=== PATIENT | male | born 1965 | race Caucasian/White ===

== ENCOUNTER 2016-10-22 23:23 | Inpatient (IN) | payer SELFPAY ==
[2016-10-22 23:48] LABS: ABSOLUTE MONOCYTES (AUTO) 1.5 10^3/uL (0.1-1.4); BASOPHILS % (AUTO) 0.3 % (0-2); EOSINOPHILS % (AUTO) 0.1 % (0-6); HEMATOCRIT 47.3 % (37.9-51.0); HEMOGLOBIN 15.6 g/dL (13.5-17.0); HGB HCT DIFFERENCE -0.5; LYMPHOCYTES % (AUTO) 17.5 % (13-45); MEAN CORPUSCULAR HEMOGLOBIN 29.1 pg (27.0-33.4); MEAN CORPUSCULAR HGB CONC 32.9 g/dL (32.0-36.0); MEAN CORPUSCULAR VOLUME 89 fl (80-97); MONOCYTES % (AUTO) 12.7 % (3-13); RED BLOOD COUNT 5.34 10^6/uL (4.35-5.55); RED CELL DISTRIBUTION WIDTH 15.5 % (11.5-14.0); SEGMENTED NEUTROPHILS % (AUTO) 69.4 % (42-78); WHITE BLOOD COUNT 11.5 10^3/uL (4.0-10.5)
[2016-10-22] MEDS ORDERED: NORMAL SALINE 1000 ML 1,000 ML IV ONE (23:58)
[2016-10-23 00:10] LABS: ALANINE AMINOTRANSFERASE 60 U/L (21-72); ALBUMIN 4.6 g/dL (3.5-5.0); ALKALINE PHOSPHATASE 80 U/L (38-126); ANION GAP 16 (5-19); ASPARTATE AMINO TRANSFERASE 106 U/L (17-59); BILIRUBIN,DIRECT 0.4 mg/dL (0.0-0.4); BILIRUBIN,TOTAL 0.7 mg/dL (0.2-1.3); BLOOD UREA NITROGEN 18 mg/dL (7-20); CALCIUM 9.5 mg/dL (8.4-10.2); CARBON DIOXIDE 27 mmol/L (22-30); CHLORIDE 98 mmol/L (98-107); CREATININE RESULT 0.91 mg/dL (0.52-1.25); GLUCOSE 148 mg/dL (75-110); SODIUM 141.3 mmol/L (137-145); TOTAL PROTEIN 7.9 g/dL (6.3-8.2)
[2016-10-23 00:13] LABS: ALCOHOL < 10 mg/dL (NONE DETECTED)
[2016-10-23 01:31] LABS: VENOUS BLOOD BASE EXCESS 5.5 mmol/L; VENOUS BLOOD PH 7.46 (7.30-7.42)
[2016-10-23] MEDS ORDERED: NORMAL SALINE 1000 ML 1,000 ML IV ONE ×3 (01:34→07:02)
[2016-10-23] MEDS ORDERED: LORAZEPAM INJ 2 MG/1 ML VIAL IV ONE ×3 (01:50→02:50)
[2016-10-23] MEDS ORDERED: FOMEPIZOLE INJ 1.5 GM/1.5 ML VIAL IV PRN (02:00)
--- NOTE | 2016-10-23 02:11 | ER Document Report ---
ED General - General Chief Complaint: ETOH Abuse Stated Complaint: DRIKING RUBBING ALCOHOL Time Seen by Provider: 10/22/16 23:58 TRAVEL OUTSIDE OF THE [place] IN LAST 30 DAYS: No - HPI Patient complains to provider of: Isopropyl alcohol ingestion Notes: Patient coming in for evaluation of isopropyl alcohol ingestion. Patient has a history of chronic alcoholism. Patient does admit also using cocaine and heroin recently. According to the patient was found with empty bottles of isopropyl alcohol. Patient also admits to drinking regular alcohol. Patient initially denies an intent to harm himself however states that patient made a statement that he could not live without her states that she was planning on leaving her . Patient has been in the past for DTs and alcohol withdrawal for rhabdomyolysis. Upon evaluation patient is alert tachycardic. Patient has no complaints - Related Data Allergies/Adverse Reactions: Penicillins Allergy (Severe, Verified 10/23/16 04:10) Anaphylaxis Past Medical History - Social History Smoking Status: Never Smoker Frequency of alcohol use: Heavy Drug Abuse: Cocaine, Heroin, Prescription drugs Family History: CAD Patient has suicidal ideation: No Patient has homicidal ideation: No - Past Medical History Cardiac Medical History: Denies: Hx Atrial Fibrillation, Hx Congestive Heart Failure, Hx Coronary Artery Disease, Hx Heart Attack, Hx Hypercholesterolemia, Hx Hypertension, Hx Peripheral Vascular Disease, Hx Pulmonary Embolism, Hx Heart Murmur Pulmonary Medical History: Denies: Hx Asthma, Hx Bronchitis, Hx COPD, Hx Pneumonia, Hx Respiratory Failure, Hx Sleep Apnea, Hx Tuberculosis Neurological Medical History: Denies: Hx Cerebrovascular Accident, Hx Seizures Renal/ Medical History: Denies: Hx Benign Prostatic Hyperplasia, Hx End Stage Renal Disease, Hx Kidney Stones, Hx Peritoneal Dialysis Malignancy Medical History: Denies Hx Lung Cancer GI Medical History: Denies: Hx Crohn's Disease, Hx Gastroesophageal Reflux Disease, Hx Hiatal Hernia, Hx Irritable Bowel, Hx Liver Failure, Hx Ulcer Musculoskeltal Medical History: Denies Hx Arthritis, Denies Hx Fibromyalgia, Denies Hx Multiple Sclerosis, Denies Hx Muscular Dystrophy Psychiatric Medical History: Denies: Hx Dementia Traumatic Medical History: Reports: Hx Fractures Past Surgical History: Reports: Hx Orthopedic Surgery - NECK, BACK. Denies: Hx Colostomy, Hx Pacemaker - Immunizations Hx Diphtheria, Pertussis, Tetanus Vaccination: Yes Review of Systems - Review of Systems Constitutional: No symptoms reported EENT: No symptoms reported Cardiovascular: No symptoms reported Respiratory: No symptoms reported Gastrointestinal: No symptoms reported Genitourinary: No symptoms reported Male Genitourinary: No symptoms reported Musculoskeletal: No symptoms reported Skin: No symptoms reported Hematologic/Lymphatic: No symptoms reported Neurological/Psychological: Other - Isopropyl alcohol use possible attempt to harm self Physical Exam - Vital signs Vitals: Temp Pulse Resp BP Pulse Ox 97.8 F 118 H 18 153/87 H 93 10/22/16 23:26 10/22/16 23:26 10/22/16 23:26 10/22/16 23:26 10/22/16 23:26 Interpretation: Tachycardic - General General appearance: Appears well, Alert - HEENT Head: Normocephalic, Atraumatic Eyes: Normal Pupils: No: PERRL - 2 mm minimally reactive bilaterally - Respiratory Respiratory status: No respiratory distress Chest status: Nontender Breath sounds: Normal Chest palpation: Normal - Cardiovascular Rhythm: Tachycardia Heart sounds: Normal auscultation Murmur: No - Abdominal Inspection: Normal Distension: No distension Bowel sounds: Normal Tenderness: Nontender Organomegaly: No organomegaly - Back Back: Normal, Nontender - Extremities General upper extremity: Normal inspection, Nontender, Normal color, Normal ROM , Normal temperature General lower extremity: Normal inspection, Nontender, Normal color, Normal ROM , Normal temperature, Normal weight bearing. No: Aidee's sign - Neurological Neuro grossly intact: Yes Cognition: Normal Orientation: AAOx4 Bradford Coma Scale Eye Opening: Spontaneous Bradford Coma Scale Verbal: Oriented Shital Coma Scale Motor: Obeys Commands Shital Coma Scale Total: 15 Speech: Normal Motor strength normal: LUE, RUE, LLE, RLE Sensory: Normal - Psychological Associated symptoms: Normal affect, Normal mood - Skin Skin Temperature: Warm Skin Moisture: Dry Skin Color: Normal Course - Re-evaluation Re-evalutation: 10/23/16 02:10 Discuss case with poison control. Poison control ([place]) recommendations at this time as it family members and patient states that the patient drank isopropyl alcohol or rubbing alcohol did not recommend for fomepizole at this time. Patient since arriving here to the ER has become gradually tachycardic concern of possible withdrawal patient will be started on Ativan. 10/23/16 03:14 Patient came to the ER with a heart rate around 118 120. Patient's heart rate now has increased to 160 patient is diaphoretic and tremulous. Patient will be given another dose of Ativan due to poor IV access patient has received minimal IV fluids. IV was placed under ultrasound guidance. 10/23/16 03:57 10/23/16 04:11 Patient's tox screen has returned showing positive for opiates. Patient's heart rate has improved after 6 mg of Ativan IV fluids are still infusing 10/23/16 05:30 Waiting for admission 10/23/16 05:31 Otherwise stable at this time heart rate has improved to 120s-110s due to the stating that she thinks the patient was trying to harm himself patient was placed on IVC paperwork 10/23/16 05:31 - Vital Signs Vital signs: Temp Pulse Resp BP Pulse Ox 97.8 F 118 H 16 132/97 H 99 10/22/16 23:26 10/22/16 23:26 10/23/16 06:01 10/23/16 06:01 10/23/16 06:01 - Laboratory Result Diagrams: 10/22/16 23:30 10/22/16 23:30 Laboratory results interpreted by me: 10/22/16 10/22/16 10/22/16 23:30 23:30 23:30 WBC 11.5 H RDW 15.5 H Absolute Monocytes 1.5 H VBG pH Glucose 148 H Serum Osmolality 342 H AST 106 H Creatine Kinase Salicylates < 1.0 L Acetaminophen < 10 L 10/22/16 10/23/16 23:30 01:13 WBC RDW Absolute Monocytes VBG pH 7.46 H Glucose Serum Osmolality AST Creatine Kinase 1405 H Salicylates Acetaminophen Critical Care Note - Critical Care Note Total time excluding time spent on procedures (mins): 90 Comments: Multiple evaluation the patient with isopropyl alcohol ingestion with possible alcohol withdrawals. Requiring ICU admission Discharge - Discharge Clinical Impression: Isopropyl alcohol ingestion, Self-harming behavior, Cocaine abuse Alcohol withdrawal Qualifiers: Complication of substance-induced condition: with unspecified complication Qualified Code(s): F10.239 - Alcohol dependence with withdrawal, unspecified Rhabdomyolysis Qualifiers: Rhabdomyolysis type: non-traumatic Qualified Code(s): M62.82 - Rhabdomyolysis Condition: Fair Admitting Provider: [facility] Unit Admitted: ICU
[2016-10-23] MEDS ORDERED: FOMEPIZOLE IV ONE (02:15)
[2016-10-23] MEDS ORDERED: NORMAL SALINE IV ONE (02:15)
[2016-10-23] MEDS ORDERED: LORAZEPAM INJ 2 MG/1 ML VIAL ONE (02:53)
[2016-10-23 04:01] LABS: URINE BARBITURATES SCREEN NEGATIVE; URINE METHADONE SCREEN NEGATIVE; URINE OPIATES LOW UNCONFIRMED POSITIVE; URINE PHENCYCLIDINE SCREEN NEGATIVE
[2016-10-23 07:04] LABS: HEMATOCRIT 41.4 % (37.9-51.0); HGB HCT DIFFERENCE 0.6; MEAN CORPUSCULAR HEMOGLOBIN 29.9 pg (27.0-33.4); MEAN CORPUSCULAR VOLUME 88 fl (80-97); RED CELL DISTRIBUTION WIDTH 15.2 % (11.5-14.0); WHITE BLOOD COUNT 10.2 10^3/uL (4.0-10.5)
[2016-10-23 07:21] LABS: ALANINE AMINOTRANSFERASE 69 U/L (21-72); ALBUMIN 4.1 g/dL (3.5-5.0); ALKALINE PHOSPHATASE 65 U/L (38-126); ANION GAP 15 (5-19); ASPARTATE AMINO TRANSFERASE 116 U/L (17-59); BILIRUBIN,DIRECT 0.4 mg/dL (0.0-0.4); BILIRUBIN,TOTAL 0.6 mg/dL (0.2-1.3); BLOOD UREA NITROGEN 19 mg/dL (7-20); CALCIUM 8.7 mg/dL (8.4-10.2); CARBON DIOXIDE 26 mmol/L (22-30); CHLORIDE 102 mmol/L (98-107); CREATININE RESULT 0.87 mg/dL (0.52-1.25); GLUCOSE 119 mg/dL (75-110); LIPASE 89.4 U/L (23-300); TOTAL PROTEIN 6.6 g/dL (6.3-8.2)
--- NOTE | 2016-10-23 07:29 | RADIOLOGY REPORT (SQ) ---
EXAM DESCRIPTION: CHEST SINGLE VIEW COMPLETED DATE/TIME: 10/23/2016 7:20 am REASON FOR STUDY: od COMPARISON: Chest x-ray 10/05/2015. EXAM PARAMETERS: NUMBER OF VIEWS: One view. TECHNIQUE: Single frontal radiographic view of the chest acquired. RADIATION DOSE: NA LIMITATIONS: None. FINDINGS: LUNGS AND PLEURA: There are low lung volumes. No focal consolidation, pleural effusion or pneumothorax. MEDIASTINUM AND HILAR STRUCTURES: No masses. Contour normal. HEART AND VASCULAR STRUCTURES: Heart normal in size. No overt vascular congestion. BONES: No acute findings. HARDWARE: Orthopedic hardware in the lower cervical/upper thoracic spine. IMPRESSION: Low lung volumes. Otherwise, no acute radiographic finding in the chest. TECHNICAL DOCUMENTATION: JOB ID: [id number]
[2016-10-23 07:35] LABS: CREATINE KINASE 2187 U/L (55-170)
[2016-10-23] MEDS: NORMAL SALINE 1000 ML 1,000 ML IV PRN ×2 (09:12→17:34)
--- NOTE | 2016-10-23 09:43 | HISTORY AND PHYSICAL E ---
History and Physical NAME: CHRISTEL TRUJILLO : 1965 AGE: 51Y ADMITTED: 10/23/2016 ROOM: ED10 CODE STATUS: FULL CODE. PRIMARY CARE PROVIDER: Jovanny Chavez DIRECTOR DAY C[facility] CENTER: [facility] CHIEF COMPLAINT: Rubbing alcohol ingestion. HISTORY OF PRESENT ILLNESS: The patient is a 51-year-old male with a past medical history of polysubstance abuse as well as hypertension that is well known to the hospitalist service. The patient presented to the emergency department due to isopropyl alcohol ingestion. The patient does have a known history of chronic alcoholism as well as opiate dependency. Upon presentation, the patient was awake and alert and was able to answer questions. At the time of examination, the patient is unable to participate in his evaluation as he is quite groggy after receiving Ativan. Therefore, history is obtained from previous and current records. According to ER documentations, the patient's had found empty bottles or isopropyl alcohol. The patient had also admitted to drinking regular alcohol. The patient initially denied intent to self harm; however, the states that the patient made a statement that he could not live without his given that she was planning on ending their relationship. The patient has been admitted in the past for DTs due to alcohol withdrawal as well as rhabdomyolysis. Upon presentation, the patient was found to be alert, but extremely tachycardic, diaphoretic, and without other complaints. The case was discussed with Poison Control by the ER provider. According to [facility] [facility], recommendations were made for the patient to be observed and hydrated, but would defer fomepizole at this time. While in the emergency department, the patient became increasingly tachycardic and with evidence of acute withdrawals and therefore the patient was started on Ativan. When the patient presented to the ER, his heart rate was around 118-120; however, his heart rate increased to 160 and he became tremulous and yet another dose of Ativan was given. The patient did have an IV placed under ultrasound guidance. The patient's tox screen was positive for opiates; however, the patient had admitted to recent heroin and cocaine ingestion. The patient is currently enrolled at a Suboxone clinic with his last prescription on 10/14/2016 in which he received 21 count of films. Given the patient admitting and expressing not wanting to go on, this was believed to be an attempt of self harm, and the patient was placed under involuntary commitment with a sitter. At the time of my examination, the patient was found to be in early rhabdo with a CK of 2187, AST of 116, however, other electrolytes were well within normal range and the patient's blood pressure was elevated at 164/94. The patient was tachycardic at 120. The patient will be admitted to ICU. HOME MEDICATIONS: Include: 1. Suboxone 8 mg/2 mg film. 2. Lisinopril 20 mg p.o. daily. ALLERGIES: PENICILLIN. PAST MEDICAL HISTORY: Includes: 1. Hypertension. 2. Alcohol dependency. 3. Opiate dependency. 4. Regular cocaine use. PAST SURGICAL HISTORY: Remarkable for cervical spine surgery secondary to trauma. SOCIAL HISTORY: The patient drinks heavily up to a half gallon of vodka a day. The patient also uses cocaine regularly. The patient has no history of tobacco use. The patient is currently . His is his surrogate decision maker, Nori Trujillo, who may be reached at [phone]. The patient is unemployed. FAMILY MEDICAL HISTORY: Negative for heart disease, stroke, or diabetes. The patient previously reported that his family members are otherwise healthy. No other history is able to be obtained at this time given the patient's state. REVIEW OF SYSTEMS: Full review of systems cannot be appreciated at this time given the patient's obtunded state. PHYSICAL EXAMINATION: GENERAL: On examination, the patient is a well-developed, extremely disheveled 51-year-old male who will awaken, but is not conversational. He goes right back to sleep. He appears to be in some mild distress. VITAL SIGNS: Temperature is 97.8, pulse 126, respirations 19, blood pressure is 164/94, oxygen saturation is 100% on 2 L nasal cannula. SKIN: At this time is dry. He is not currently diaphoretic. The patient has multiple areas of lacerations on his left lower extremity and ulcerations in various stages of healing. HEENT: Pupils are currently sluggishly reactive, moderately dilated. Conjunctiva is pink. Sclera is nonicteric. There is no JVP. No palpable lymphadenopathy or thyromegaly. Profound halitosis. CARDIOVASCULAR SYSTEM: Heart is tachycardic, regular. The patient does have a 2/6 systolic murmur, but no rub. CHEST: Clear, symmetrical, unlabored, but diminished. ABDOMEN: Obese, soft, nontender, nondistended. Palpable liver suggestive of hepatomegaly. BACK: No evidence of sacral edema. EXTREMITIES: No clubbing, cyanosis, edema, +1 pedal pulses noted bilaterally. PSYCHIATRIC: Unable to fully assess at this time. NEUROLOGICAL: Not cooperative for full examination. DIAGNOSTICS: Lab values are as follows: Hematology obtained on 10/23/2016: WBCs are 10.3, hemoglobin is 14.0, hematocrit is 41.4, platelet count is 186,000. VBG obtained on 10/23/2016: PH is 7.46, PCO2 is 43.0, bicarb is 30. Chemistry obtained on 10/23/2016: Sodium is 143, potassium 4.0, chloride is 102, carbon dioxide is 26, BUN 19, creatinine is 0.87, glucose 119. Serum osmolality is 332. Calcium is 8.7, total bilirubin is 0.6. AST 116, ALT is 69, Alk phos 2187. Troponin is 0.013. Total protein 6.6, albumin 4.1, lipase is 89. Toxicology obtained on 10/23/2016: Opiate screen is positive, otherwise trujillo negative, including alcohol level. Chest x-ray obtained on 10/23/2016 is suggestive of low lung volumes, otherwise no acute radiographic finding of the chest. EKG obtained on 10/23/2016 reveals sinus tachycardia. IMPRESSION AND PLAN: 1. Isopropyl alcohol ingestion. Once again, the case has been discussed with Poison Control. Will continue to aggressively hydrate, monitor the patient's chemistries, and continue supportive management. 2. Alcohol dependency. Have suspicion for early withdrawal. Will add IV Ativan and continue to monitor closely. Will also replace the vitamins. 3. Cocaine abuse. Will defer beta blockers for rate control and will monitor tachycardia for now. 4. Opiate dependency, continuous. The patient is in the Suboxone clinic. Will supply intermittent p.r.n. opiate coverage to lessen any potential withdrawals. 5. Heroin use. Uncertain of the patient's actual ingestion. He does have multiple areas of ulcerations, possible IV use. Given that with the patient's mild murmur, will obtain echocardiogram as well as blood cultures and follow. 6. Rhabdomyolysis. This is secondary to the above. Will continue to aggressively hydrate. CK is on an upward trend. Will repeat later today and monitor for evidence of volume overload. 7. Abnormal LFTs, most likely secondary to chronic alcohol and rhabdo. Will follow. 8. Hypertension. The patient's blood pressures are slightly elevated, but will watch this closely, defer any additional medications for now if possible. 9. Intent to self harm. The patient is currently under IVC commitment. Will continue this for now. Consult Psych for input and follow. DISPOSITION: The patient is a FULL CODE. Pending patient's symptomatology and diagnostic findings, will re-evaluate as needed. Will admit the patient to inpatient ICU as the patient's expected length of stay will surpass 2 midnights given his need for IV fluid resuscitation and further stabilization. Time spent on this admission, including assessment, plan, physical examination, attempt at patient education, extensive review of records and collaboration is 60 minutes of critical care time. DICTATING PHYSICIAN: EKATERINA COLEMAN NP [id number] PHY#: [id number] ID: [id number] JOB#: [id number] ACCT: [id number] cc:MICHELLE MCLEAN > MTDFrancisco
[2016-10-23] MEDS: LORAZEPAM INJ 2 MG/1 ML VIAL IV PRN ×3 (09:47→14:06)
--- NOTE | 2016-10-23 09:53 | EKG REPORT ---
SEVERITY:- OTHERWISE NORMAL ECG - SINUS TACHYCARDIA : Confirmed by: Og Bauer 23-Oct-2016 09:52:30
[2016-10-23] MEDS: NORMAL SALINE 1000 ML 1,000 ML with POTASSIUM CHLORIDE 20 MEQ, MAGNESIUM SULFATE 8 MEQ,... IV SCH ×5 (09:58)
[2016-10-23 15:22] LABS: ANION GAP 8 (5-19); BLOOD UREA NITROGEN 16 mg/dL (7-20); CALCIUM 8.5 mg/dL (8.4-10.2); CARBON DIOXIDE 27 mmol/L (22-30); CHLORIDE 104 mmol/L (98-107); CREATININE RESULT 0.79 mg/dL (0.52-1.25); GLUCOSE 119 mg/dL (75-110); POTASSIUM 3.8 mmol/L (3.6-5.0)
[2016-10-23 15:29] LABS: CREATINE KINASE 2611 U/L (55-170)
--- NOTE | 2016-10-23 16:20 | PSYCHOLOGICAL NOTE ---
Psych Note - Psych Note Psych Note: Patient coming in for evaluation of isopropyl alcohol ingestion. Patient has a history of chronic alcoholism. Patient does admit also using cocaine and heroin recently. According to the patient was found with empty bottles of isopropyl alcohol. Patient also admits to drinking regular alcohol. Patient initially denies an intent to harm himself however states that patient made a statement that he could not live without her states that she was planning on leaving her . Patient has been in the past for DTs and alcohol withdrawal for rhabdomyolysis. Patient disclosed he is not doing well. Patient confirms he drank rubbing alcohol but states "I do not know why." Patient was unclear if he has any past suicidal attempts. However was able to confirm he receives services through [facility]. Patient is semi-alert and orientated to person place and circumstance. Mood is dysphoric with flat affect. Patient will not confirm suicidal ideation. Impression\\plan: Patient is recommended to continue under IVC. Patient is unable to fully engage with mental health evaluation, cognitive abilities are currently impaired. Evaluation will occur.
[2016-10-23] MEDS: ENALAPRILAT DIHYDRATE INJ/PF 2.5 MG/2 ML SDV IV PRN (19:05)
[2016-10-24] MEDS: LORAZEPAM INJ 2 MG/1 ML VIAL IV PRN ×5 (00:23→21:18)
[2016-10-24] MEDS: NORMAL SALINE 1000 ML 1,000 ML IV PRN ×4 (00:24→22:23)
[2016-10-24] MEDS ORDERED: LORAZEPAM INJ 2 MG/1 ML VIAL IV PRN (01:16)
[2016-10-24] MEDS: ENALAPRILAT DIHYDRATE INJ/PF 2.5 MG/2 ML SDV IV PRN (04:21)
[2016-10-24 07:00] LABS: ANION GAP 7 (5-19); BLOOD UREA NITROGEN 9 mg/dL (7-20); CALCIUM 9.1 mg/dL (8.4-10.2); CARBON DIOXIDE 30 mmol/L (22-30); CHLORIDE 105 mmol/L (98-107); CREATININE RESULT 0.72 mg/dL (0.52-1.25); GLUCOSE 103 mg/dL (75-110); MAGNESIUM 2.3 mg/dL (1.6-2.3); POTASSIUM 3.8 mmol/L (3.6-5.0); SODIUM 141.9 mmol/L (137-145)
[2016-10-24 07:14] LABS: CREATINE KINASE 2608 U/L (55-170)
--- NOTE | 2016-10-24 08:49 | EKG REPORT ---
SEVERITY:- NORMAL ECG - SINUS RHYTHM : Confirmed by: Og Bauer 24-Oct-2016 08:49:24
[2016-10-24] MEDS ORDERED: LISINOPRIL 10 MG TABLET PO SCH (10:00)
[2016-10-24] MEDS ORDERED: (PENDING PHARMACY ID) (Lisinopril [Prinivil] 20 MG) PO SCH (10:00)
[2016-10-24] MEDS: NORMAL SALINE 1000 ML 1,000 ML with POTASSIUM CHLORIDE 20 MEQ, MAGNESIUM SULFATE 8 MEQ,... IV SCH ×5 (10:34)
--- NOTE | 2016-10-24 14:22 | XCELERA REPORT ---
[address] [address] Transthoracic Echocardiogram Report Name: CHRISTEL DEL TORO SR Age: 51 yrs Gender: Male : 1965 Patient Status: Inpatient Patient Location: \S\10\S\A Study Date: 10/24/2016 08:17 AM Height: 67 in Weight: 280 lb BSA: 2.3 m2 Procedure: A two-dimensional transthoracic echocardiogram with color flow and Doppler was performed. The study was technically difficult with many images being suboptimal in quality. Reason For Study: Dyspnea, murmur, ?IV drug use History: Dyspnea, murmur, ?IV drug use. Ordering Physician: EKATERINA COLEMAN Performed By: Deejay Bowden Interpretation Summary The left ventricle is normal in size. There is normal left ventricular wall thickness. Left ventricular systolic function is normal. LV EF is 60% Doppler measurements suggest normal left ventricular diastolic function The left ventricular wall motion is normal. There is no thrombus. The right ventricle is not well visualized secondary to technical limitations The right atrium is normal. The left atrial size is normal. There is no evidence of mitral valve prolapse. There is no mitral valve stenosis. There is a trace to mild amount of mitral regurgitation There is no aortic valve stenosis There is no LVOT obstruction. No aortic regurgitation is present. There is no tricuspid stenosis. There is a mild amount of tricuspid regurgitation There is mild pulmonary hypertension by echo RVSP is 39 mm of Hg , with RA mean of 10. There is no pericardial effusion. MMode/2D Measurements \T\ Calculations RVDd: 2.9 cm LVIDd: 5.0 cm FS: 32.4 % Ao root diam: 3.6 cm IVSd: 0.86 cm LVIDs: 3.4 cm EDV(Teich): 120.2 ml LVPWd: 1.0 cm ESV(Teich): 47.6 ml Ao root area: 9.9 cm2 EF(Teich): 60.4 % LA dimension: 3.2 cm Doppler Measurements \T\ Calculations MV E max seb: MV P1/2t max seb: Ao V2 max: LV V1 max P.6 cm/sec 108.6 cm/sec 132.1 cm/sec 4.3 mmHg MV A max seb: MV P1/2t: 44.5 msec Ao max PG: LV V1 max: 70.1 cm/sec 7.0 mmHg 103.6 cm/sec MV E/A: 1.5 MVA(P1/2t): 4.9 cm2 MV dec slope: 714.0 cm/sec2 PA V2 max: TR max seb: RAP systole: 117.2 cm/sec 268.1 cm/sec 10.0 mmHg PA max PG: TR max P.0 mmHg 5.5 mmHg RVSP(TR): 39.0 mmHg Left Ventricle The left ventricle is normal in size. There is normal left ventricular wall thickness. Left ventricular systolic function is normal. LV EF is 60%. Doppler measurements suggest normal left ventricular diastolic function. The left ventricular wall motion is normal. There is no thrombus. Right Ventricle The right ventricle is not well visualized secondary to technical limitations. Atria The right atrium is normal. The left atrial size is normal. Mitral Valve There is no evidence of mitral valve prolapse. There is no vegetation seen on the mitral valve. There is no mitral valve stenosis. There is a trace to mild amount of mitral regurgitation. Aortic Valve There is no aortic valvular vegetation. There is no aortic valve stenosis. There is no LVOT obstruction. No aortic regurgitation is present. Tricuspid Valve There is no tricuspid stenosis. There is a mild amount of tricuspid regurgitation. There is mild pulmonary hypertension by echo. RVSP is 39 mm of Hg , with RA mean of 10. Pulmonic Valve There is no pulmonic valvular stenosis. There is no pulmonic valvular regurgitation. Great Vessels The aortic root is normal size. Effusions There is no pericardial effusion. : EKATERINA COLEMAN > Valentine Erwin
[2016-10-24] MEDS ORDERED: HYDRALAZINE HCL INJ/PF 20 MG/1 ML SDV IV PRN (14:57)
[2016-10-24] MEDS ORDERED: AMLODIPINE BESYLATE 5 MG TABLET PO ONE (15:30)
--- NOTE | 2016-10-24 16:08 | PROGRESS NOTE E ---
Progress Note NAME: CHRISTEL DEL TORO : 1965 AGE: 51Y DATE: 10/24/2016 ROOM: 331 SUBJECTIVE: The patient was seen twice today on rounds. The patient is a little confused given that he is receiving Ativan. His agitation has improved slightly. He is no longer being restrained, however, the patient is unable to provide accurate history, claiming that he has 12 children and believes that he is "out of state." The patient has been afebrile. His blood pressures are on the high side, systolically in the 160s to 170s. Heart rate overall has improved though. The patient denies any specific concern, however, uncertain how accurate history is. The patient is unable to voice any specific concerns at this time. REVIEW OF SYSTEMS: Full review of systems cannot be appreciated given the patient's mental status. MEDICATIONS: Have been reviewed. OBJECTIVE: GENERAL: The patient is a 51-year-old male who will awaken and will converse but he is sleepy. Does not appears to be in any acute distress. VITAL SIGNS: Temperature 98.5, pulse 99, respirations 21, blood pressure 167/79, oxygen saturation is 96% on room air. SKIN: Warm and dry. No rash. Not diaphoretic. HEENT: Pupils are pinpoint. Conjunctivae are pink. NECK: There is no JVP. CARDIOVASCULAR: Heart is regular with no murmur or rub. CHEST: Clear, symmetrical, unlabored. ABDOMEN: Obese, soft. No area of focal tenderness. EXTREMITIES: No clubbing or cyanosis. The patient's lower extremities do have abrasions but no peripheral edema. PSYCHIATRIC: Unable to fully assess. DIAGNOSTICS: Lab values are as follows: Hematology obtained on a 10/23/2016: WBCs are 10.1, hemoglobin is 14.0, hematocrit is 41.4, platelet count is 187,000. Chemistry obtained on 10/24/2016: Sodium is 141, potassium 3.8, chloride is 105, carbon dioxide is 30, BUN 9, creatinine is 0.72, glucose 103, calcium is 9.1, magnesium is 2.3, CK is 2609. IMPRESSION AND PLAN: 1. ISOPROPYL ALCOHOL INGESTION. The case was discussed with Poison Control. The patient will be aggressively hydrated and monitored. Continue supportive management. 2. ALCOHOL DEPENDENCY. Patient does appear to be in acute withdrawals. Will continue Ativan and monitor closely. Will have also replaced B vitamins. 3. COCAINE ABUSE. Will defer beta blockers. Tachycardia overall is improving. 4. OPIATE DEPENDENCY CONTINUOUS. The patient is enrolled in Suboxone clinic. Will continue p.r.n. opiate coverage to lessen potential for withdrawals. 5. HEROIN USE. Uncertain the amount of the patient's actual ingestion. The patient does have multiple areas of ulcerations. Could possibly be IV use. The patient's echocardiogram was unremarkable. Blood cultures have been negative. 6. RHABDOMYOLYSIS. Will continue to aggressively hydrate. The patient's creatinine has not bumped a this time. Urine output appears relatively clear. Will continue to aggressively hydrate. 7. ABNORMAL LFTS SECONDARY TO CHRONIC ALCOHOLISM AND MOST LIKELY RHABDO. 8. HYPERTENSION. Blood pressures are elevated. Will continue home medications and add p.r.n. coverage. 9. INTENT TO SELF HARM. The patient is currently under IVC which is recommended as well by Psychology. The patient will be reevaluated once acute withdrawals have resolved. Do appreciate input. DISPOSITION: The patient is a FULL CODE. Pending patient's symptomatology and diagnostic findings, will reevaluate in the a.m. The patient can be downgraded to [facility]. Time spent on this followup including assessment, plan, physical examination, attempt at patient education is 25 minutes. DICTATING PHYSICIAN: EKATERINA COLEMAN NP [id number] PHY#: [id number] ID: [id number] JOB#: [id number] ACCT: [id number] cc: >
[2016-10-24] MEDS: AMLODIPINE BESYLATE 5 MG TABLET PO SCH (21:18)
[2016-10-24] MEDS: LISINOPRIL 10 MG TABLET PO SCH (21:18)
[2016-10-25] MEDS: NORMAL SALINE 1000 ML 1,000 ML IV PRN (02:50)
[2016-10-25 06:02] LABS: HEMATOCRIT 39.8 % (37.9-51.0); HEMOGLOBIN 13.3 g/dL (13.5-17.0); HGB HCT DIFFERENCE 0.1; MEAN CORPUSCULAR HEMOGLOBIN 29.2 pg (27.0-33.4); MEAN CORPUSCULAR HGB CONC 33.3 g/dL (32.0-36.0); MEAN CORPUSCULAR VOLUME 88 fl (80-97); RED BLOOD COUNT 4.55 10^6/uL (4.35-5.55); RED CELL DISTRIBUTION WIDTH 15.6 % (11.5-14.0); WHITE BLOOD COUNT 5.4 10^3/uL (4.0-10.5)
[2016-10-25 06:12] LABS: ANION GAP 10 (5-19); BLOOD UREA NITROGEN 10 mg/dL (7-20); CALCIUM 8.9 mg/dL (8.4-10.2); CARBON DIOXIDE 27 mmol/L (22-30); CHLORIDE 103 mmol/L (98-107); CREATININE RESULT 0.71 mg/dL (0.52-1.25); GLUCOSE 102 mg/dL (75-110); MAGNESIUM 2.2 mg/dL (1.6-2.3); POTASSIUM 3.7 mmol/L (3.6-5.0); SODIUM 139.7 mmol/L (137-145)
[2016-10-25] MEDS: LORAZEPAM INJ 2 MG/1 ML VIAL IV PRN ×3 (07:51→19:11)
[2016-10-25] MEDS: AMLODIPINE BESYLATE 5 MG TABLET PO SCH ×2 (07:51→21:15)
[2016-10-25] MEDS: LISINOPRIL 10 MG TABLET PO SCH ×2 (07:51→21:15)
[2016-10-25] MEDS: NORMAL SALINE 1000 ML 1,000 ML with POTASSIUM CHLORIDE 20 MEQ, MAGNESIUM SULFATE 8 MEQ,... IV SCH ×5 (07:52)
[2016-10-25] MEDS ORDERED: NORMAL SALINE 1000 ML 1,000 ML IV PRN (14:21)
--- NOTE | 2016-10-25 14:43 | PROGRESS NOTE E ---
Progress Note NAME: CHRISTEL DEL TORO : 1965 AGE: 51Y DATE: 10/25/2016 ROOM: 331 SUBJECTIVE: The patient is lying in bed. According to nursing staff, the patient was quite anxious this morning and was getting shaky and therefore received additional dose of Ativan. Upon rounds the patient is able to awaken, answer yes or no but very quickly goes back to sleep. The patient has maintained his own airway and is oxygenating well. The patient has been afebrile. His blood pressures have been in a good range. The patient is unable to voice any specific concerns at this time. REVIEW OF SYSTEMS: Full review of systems cannot be appreciated given the patient's mental status. MEDICATIONS: Have been reviewed. PHYSICAL EXAMINATION: GENERAL: The patient is a 51-year-old male who will awaken but is quite groggy. He does not appear to be in any acute distress. VITAL SIGNS: Temperature is 98.9, pulse 115, respirations 16, blood pressure 150/79, oxygen saturation is 97% on room air. SKIN: Warm and dry. No rash. Not diaphoretic. HEENT: Pupils equal, round, reactive to light and accommodation. Conjunctivae are pink. NECK: There is no JVP. CARDIOVASCULAR: Heart is tachycardiac and regular. There is no murmur or rub. CHEST: Clear, symmetrical, unlabored. ABDOMEN: Obese, soft. No area of focal tenderness. EXTREMITIES: No clubbing, cyanosis, or edema. The patient does have multiple areas of superficial laceration noted down his left leg with area of ulcerations noted on right. PSYCHIATRIC: Unable to fully asses. DIAGNOSTICS: Lab values are as follows: Hematology obtained on 10/25/2016: WBCs are 5.4, hemoglobin is 13.3, hematocrit is 39.8, platelet count is 133,000. Chemistry obtained on 10/25/2016: Sodium is 139, potassium 2.7, chloride is 103, carbon dioxide 27, BUN 10, creatinine 0.71, glucose 102, calcium is 8.9, magnesium is 2.2, CK is 1035. Microbiology: Blood cultures obtained on 10/23/2016 reveal no growth. IMPRESSION AND PLAN: 1. ISOPROPYL ALCOHOL INGESTION. The case was discussed with Poison Control. Overall the patient appears improved. Continue to hydrate. Monitor the patient's chemistry. Continue supportive care. 2. ALCOHOL DEPENDENCY WITH ACUTE WITHDRAWAL. Will continue IV Ativan and replace B vitamins. 3. COCAINE ABUSE. Have deferred beta blockers for rate control, just monitor. This appears sinus tachycardia. Follow. 4. OPIATE DEPENDENCY CONTINUOUS. The patient is in the Suboxone clinic. Will supplement p.r.n. opiate coverage to lessen any potential withdrawals. 5. HEROIN USE. His echo was unremarkable. Uncertain of exact method of ingestion. Will follow. 6. RHABDOMYOLYSIS SECONDARY TO THE ABOVE. CK is on a downward trend. Will repeat CK in the a.m. and decrease IV fluids. 7. ABNORMAL LFTS MOST LIKELY DUE TO CHRONIC ALCOHOL WELL RHABDO. Will follow. 8. HYPERTENSION. Blood pressures have been improved with additional medication. Will follow. 9. INTENT TO SELF HARM. Patient is currently under IVC commitment. Do appreciate Psych input. DISPOSITION: The patient is a FULL CODE. Pending patient's symptomatology and diagnostic findings, will reevaluate in the a.m. Time spent on this followup including assessment, plan, physical examination, and patient education is 25 minutes. DICTATING PHYSICIAN: EKATERINA COLEMAN NP [id number] PHY#: [id number] ID: [id number] JOB#: [id number] ACCT: [id number] cc: >
[2016-10-26] MEDS: LORAZEPAM INJ 2 MG/1 ML VIAL IV PRN ×5 (03:12→21:37)
[2016-10-26 06:31] LABS: ANION GAP 6 (5-19); BLOOD UREA NITROGEN 18 mg/dL (7-20); CALCIUM 8.9 mg/dL (8.4-10.2); CARBON DIOXIDE 30 mmol/L (22-30); CHLORIDE 102 mmol/L (98-107); CREATINE KINASE 411 U/L (55-170); CREATININE RESULT 0.75 mg/dL (0.52-1.25); GLUCOSE 104 mg/dL (75-110); POTASSIUM 4.2 mmol/L (3.6-5.0); SODIUM 138.4 mmol/L (137-145)
[2016-10-26] MEDS: NORMAL SALINE 1000 ML 1,000 ML with POTASSIUM CHLORIDE 20 MEQ, MAGNESIUM SULFATE 8 MEQ,... IV SCH ×5 (07:35)
[2016-10-26] MEDS: LISINOPRIL 10 MG TABLET PO SCH ×2 (07:36→21:37)
[2016-10-26] MEDS: AMLODIPINE BESYLATE 5 MG TABLET PO SCH ×2 (07:36→21:37)
[2016-10-27] MEDS: LORAZEPAM INJ 2 MG/1 ML VIAL IV PRN ×4 (01:36→20:25)
[2016-10-27] MEDS ORDERED: CYCLOBENZAPRINE HCL 10 MG TABLET PO PRN (08:31)
[2016-10-27] MEDS ORDERED: LORAZEPAM INJ 2 MG/1 ML VIAL IV ONE (08:37)
--- NOTE | 2016-10-27 09:07 | PROGRESS NOTE E ---
Progress Note NAME: CHRISTEL DEL TORO : 1965 AGE: 51Y DATE: 10/27/2016 ROOM: 331 SUBJECTIVE: The patient is much more awake and alert today than he was even yesterday. The patient has been re-evaluated by Psych and recommendations have been made for rescission of IVC. This has been done and orders have been discontinued. I had a lengthy conversation with the patient regarding his current stay and how we can prevent readmission. The patient stated that Suboxone does not do it for him and he has been purchasing oxy for pain management off the street. The patient states that his daily oxy intake is anywhere from 45 mg to 90 mg to maintain pain relief from his previous back fractures. The patient has expressed desire to completely get off opiates. An agreement has been made. The patient will contact his pain management provider himself today and arrange his own followup and disclose his current situation. The patient has expressed desire to stop opiates and, therefore, would like to try a pain management regimen today that is opiate free if possible and as well the patient states he is still very shaky. The patient does have a significant history of withdrawal seizures and, therefore, will continue 1 more day of inpatient detox with benzodiazepines. BRIEF HISTORY: The patient is a 51-year-old male who is well known to the hospitalist service due to polysubstance abuse. The patient presented to the emergency department with suicidal ideation and ingestion of isopropyl alcohol/ethyl alcohol consisting of hand rubber goods cutter finisher and rubbing alcohol as well as general drinking alcohol. The patient was noted to be in rhabdomyolysis and was aggressively hydrated. The patient is going through acute withdrawal, still shaky but overall much improved. The patient has been re-evaluated by Psychology and the patient has expressed no intent to self harm or to harm others as his actions are situational and related to his potential leaving and his heartbreak associated with that. The patient expresses desire to become sober. REVIEW OF SYSTEMS: The rest of the review of systems is negative. MEDICATIONS: Medications have been reviewed. OBJECTIVE: GENERAL: The patient is a 51-year-old male who is awake, alert, and oriented to person, place, time, and situation. He is verbal and conversational. He does not appear to be in any acute distress. VITAL SIGNS: Temperature is 97.4, pulse 96, respirations 16, blood pressure 171/90, and oxygen saturation is 93% on room air. SKIN: Warm and dry. There is no rash and he is not diaphoretic. HEENT: Pupils are equal, round and reactive to light and accommodation. Conjunctiva is pink. No JVP. CARDIOVASCULAR: Heart is regular, is no murmur or rub. CHEST: Clear, symmetrical, unlabored. ABDOMEN: Soft, nontender, nondistended. BACK: No CVA tenderness or sacral edema. EXTREMITIES: No clubbing, cyanosis, edema. DIAGNOSTICS: Lab values are as follows. Hematology obtained on 10/25/2016: WBCs are 5.4, hemoglobin, hematocrit 38.9, and platelet count is 132,000. Chemistry obtained on 10/26/2016: Sodium is 138, potassium 4.2, chloride 102, carbon dioxide 30, BUN 18, creatinine 0.75, glucose 104, calcium 8.9, magnesium 2. CK is 411. IMPRESSION AND PLAN: 1. ISOPROPYL ALCOHOL INGESTION. This case was discussed with Poison Control. The patient improved with hydration. Will continue supportive care. 2. ALCOHOL DEPENDENCY WITH ACUTE WITHDRAWAL. Will give 1 last dose of IV Ativan and start with p.o. Ativan. Have replaced his B vitamins. 3. COCAINE ABUSE. Have deferred beta blockers for blood pressure and rate control given his use. The patient is currently in sinus tachycardia. 4. OPIATE DEPENDENCY. The patient is currently in a Suboxone Clinic but does not feel it is working for him. He expresses desire to stop opiates and would like to proceed with a pain management regimen that is opiate free. 5. HEROIN USE. Echo was unremarkable. The patient states that he only snorts this. He does not perform IV heroin injections. 6. RHABDOMYOLYSIS SECONDARY TO THE ABOVE. CK has normalized. 7. ABNORMAL LFTs MOST LIKELY DUE TO HIS CHRONIC ALCOHOLISM WELL HIS RHABDOMYOLYSIS. 8. HYPERTENSION. Blood pressures have been elevated; however, at this time he is attributing this to pain. Will continue current blood pressure medications and see if this improves with pain management. 9. INTENT TO SELF HARM. The patient currently denies any suicidal or homicidal ideation. An IVC commitment has been rescinded since he does not meet criteria. Do appreciate Psych input. DISPOSITION: THE PATIENT IS A FULL CODE. Pending the patient's symptomatology and diagnostic findings, will re-evaluate in the a.m. for discharge. The patient is downgraded to a medical bed. Time spent on this followup, including assessment/plan, physical examination, and patient education, is 35 minutes. DICTATING PHYSICIAN: EKATERINA COLEMAN NP [id number] Y#: [id number] ID: [id number] JOB#: [id number] ACCT: [id number] cc: > [facility]
[2016-10-27] MEDS ORDERED: KETOROLAC TROMETHAMINE 10 MG TABLET PO ONE (09:30)
[2016-10-27] MEDS: THIAMINE HCL 100 MG TABLET PO SCH (09:37)
[2016-10-27] MEDS: AMLODIPINE BESYLATE 10 MG TABLET PO SCH (09:37)
[2016-10-27] MEDS: LISINOPRIL 10 MG TABLET PO SCH ×2 (09:38→21:21)
[2016-10-27] MEDS: FAMOTIDINE 20 MG TABLET PO SCH ×2 (09:38→21:22)
[2016-10-27] MEDS: FOLIC ACID 1 MG TABLET PO SCH (09:41)
[2016-10-27] MEDS ORDERED: KETOROLAC TROMETHAMINE 10 MG TABLET PO SCH (14:00)
[2016-10-27] MEDS: AMITRIPTYLINE HCL 50 MG TABLET PO SCH (21:21)
[2016-10-27] MEDS: CYCLOBENZAPRINE HCL 10 MG TABLET PO PRN (21:22)
[2016-10-28] MEDS: LORAZEPAM 1 MG TABLET PO PRN ×3 (00:08→09:06)
[2016-10-28] MEDS: TRAMADOL HCL 50 MG TABLET PO PRN ×2 (04:35→22:44)
[2016-10-28] MEDS: AMLODIPINE BESYLATE 10 MG TABLET PO SCH (09:57)
[2016-10-28] MEDS: FAMOTIDINE 20 MG TABLET PO SCH ×2 (09:58→22:42)
[2016-10-28] MEDS: LISINOPRIL 10 MG TABLET PO SCH ×2 (09:58→22:43)
[2016-10-28] MEDS: FOLIC ACID 1 MG TABLET PO SCH (09:58)
[2016-10-28] MEDS: THIAMINE HCL 100 MG TABLET PO SCH (09:58)
[2016-10-28] MEDS ORDERED: LIDOCAINE 5% (700 MG) TRANSDERMAL ADH..PATCH TP ONE (11:00)
[2016-10-28] MEDS: LORAZEPAM INJ 2 MG/1 ML VIAL IV PRN ×4 (13:29→23:53)
--- NOTE | 2016-10-28 15:48 | PDOC PROGRESS REPORT ---
Subjective Progress Note for:: 10/28/16 Subjective:: Patient is seen on morning rounds. He is presently in a verbal altercation with his . His nurse, Nahomi, at the bedside as well. Patient had wanted to be discharged home today, however his feels he is still actively withdrawing. He has acting inappropriately. He is oriented to surroundings. He states he was awake all night because of back pain. We did discuss with him the option of inpatient addiction rehab. He is presently opposed to this. Physical Exam Vital Signs: Temp Pulse Resp BP Pulse Ox 98.1 F 101 H 19 134/72 H 99 10/28/16 12:54 10/28/16 12:54 10/28/16 12:54 10/28/16 12:54 10/28/16 12:54 Intake & Output 10/27/16 10/28/16 10/29/16 06:59 06:59 06:59 Intake Total 2230 800 Output Total 1150 500 Balance 1080 300 General appearance: PRESENT: disheveled, morbidly obese, well-developed, well- nourished, other - emotional and tearful Head exam: PRESENT: atraumatic, normocephalic Eye exam: PRESENT: conjunctiva pink, EOMI, PERRLA. ABSENT: scleral icterus Ear exam: PRESENT: bleeding Mouth exam: PRESENT: moist, tongue midline Neck exam: PRESENT: carotid bruit Respiratory exam: PRESENT: clear to auscultation katie. ABSENT: rales, rhonchi, wheezes Cardiovascular exam: PRESENT: RRR. ABSENT: diastolic murmur, rubs, systolic murmur Pulses: PRESENT: normal dorsalis pedis pul Vascular exam: PRESENT: normal capillary refill GI/Abdominal exam: PRESENT: normal bowel sounds, soft. ABSENT: distended, guarding, mass, organolmegaly, rebound, tenderness Rectal exam: PRESENT: deferred Extremities exam: PRESENT: full ROM. ABSENT: calf tenderness, clubbing, pedal edema Musculoskeletal exam: PRESENT: ambulatory Neurological exam: PRESENT: alert, awake, oriented to person, oriented to place , oriented to time, oriented to situation, CN II-XII grossly intact. ABSENT: motor sensory deficit Psychiatric exam: PRESENT: agitated, anxious Focused psych exam: PRESENT: psychomotor agitation, restlessness Skin exam: PRESENT: dry, intact, warm. ABSENT: cyanosis, rash Results Laboratory Results: 10/25/16 05:29 10/26/16 06:08 10/23/16 11:13 Blood Blood Culture - Final NO GROWTH IN 5 DAYS 10/23/16 08:52 Blood Blood Culture - Final NO GROWTH IN 5 DAYS 10/23/16 10/24/16 10/25/16 14:42 06:33 05:29 Creatine Kinase 2611 H 2608 H 1035 H 10/26/16 06:08 Creatine Kinase 411 H Impressions: Chest X-Ray 10/23/16 06:45 IMPRESSION: Low lung volumes. Otherwise, no acute radiographic finding in the chest. Assessment & Plan - Diagnosis (1) Alcohol withdrawal Qualifiers: Complication of substance-induced condition: with unspecified complication Qualified Code(s): F10.239 - Alcohol dependence with withdrawal, unspecified Plan: Ativan prn. Thiamine and folic acid. Discussed inpatient addiction rehab with patient and (2) Cocaine abuse Is this a current diagnosis for this admission?: Yes (3) Rhabdomyolysis Qualifiers: Rhabdomyolysis type: non-traumatic Qualified Code(s): M62.82 - Rhabdomyolysis - Time Time Spent with patient: 25-34 minutes Critical Time spent with patient: 15-24 minutes Smoking Cessation Education: 3 to 10 minutes Medications reviewed and adjusted accordingly: Yes Anticipated discharge: Home Within: within 24 hours
[2016-10-28] MEDS: AMITRIPTYLINE HCL 50 MG TABLET PO SCH (22:44)
[2016-10-29] MEDS: CYCLOBENZAPRINE HCL 10 MG TABLET PO PRN ×2 (00:08→09:11)
[2016-10-29] MEDS: LORAZEPAM INJ 2 MG/1 ML VIAL IV PRN ×6 (02:02→18:25)
[2016-10-29] MEDS ORDERED: HALOPERIDOL LACTATE INJ 5 MG/1 ML VIAL IV ONE ×2 (03:30→04:23)
[2016-10-29] MEDS ORDERED: HALOPERIDOL LACTATE INJ 5 MG/1 ML VIAL ONE (04:30)
[2016-10-29] MEDS: FAMOTIDINE 20 MG TABLET PO SCH ×2 (09:10→22:26)
[2016-10-29] MEDS: MELOXICAM 15 MG TABLET PO SCH (09:11)
[2016-10-29] MEDS: AMLODIPINE BESYLATE 10 MG TABLET PO SCH (09:11)
[2016-10-29] MEDS: LISINOPRIL 10 MG TABLET PO SCH ×2 (09:12→22:27)
[2016-10-29] MEDS: FOLIC ACID 1 MG TABLET PO SCH (09:12)
[2016-10-29] MEDS: LIDOCAINE 5% (700 MG) TRANSDERMAL ADH..PATCH TP SCH (09:12)
[2016-10-29] MEDS: THIAMINE HCL 100 MG TABLET PO SCH (09:12)
[2016-10-29] MEDS ORDERED: HALOPERIDOL LACTATE INJ 5 MG/1 ML VIAL IV PRN (11:45)
[2016-10-29] MEDS ORDERED: LORAZEPAM INJ 2 MG/1 ML VIAL IV ONE (11:51)
--- NOTE | 2016-10-29 16:36 | PDOC PROGRESS REPORT ---
Subjective Progress Note for:: 10/29/16 Subjective:: Patient is seen on morning rounds. He is presently extremely tremulous and agitated. He has a bedside sitter. He is getting ativan every 2 hrs with little affect. He states he has not slept in 2 days. His is not presently available. He denies any other complaints other than the usual pain in his back. Physical Exam Vital Signs: Temp Pulse Resp BP Pulse Ox 98.5 F 99 24 H 141/84 H 96 10/29/16 12:00 10/29/16 12:00 10/29/16 12:00 10/29/16 12:00 10/29/16 12:00 Intake & Output 10/28/16 10/29/16 10/30/16 06:59 06:59 06:59 Intake Total 800 666 Output Total 500 Balance 300 666 General appearance: PRESENT: disheveled, mild distress, morbidly obese, well- developed, well-nourished Head exam: PRESENT: atraumatic, normocephalic Eye exam: PRESENT: conjunctiva pink, EOMI, PERRLA. ABSENT: scleral icterus Ear exam: PRESENT: normal external ear exam Mouth exam: PRESENT: moist, tongue midline Teeth exam: PRESENT: poor dentation Neck exam: ABSENT: carotid bruit, JVD, lymphadenopathy, thyromegaly Respiratory exam: PRESENT: clear to auscultation katie. ABSENT: rales, rhonchi, wheezes Cardiovascular exam: PRESENT: RRR. ABSENT: diastolic murmur, rubs, systolic murmur Pulses: PRESENT: normal dorsalis pedis pul Vascular exam: PRESENT: normal capillary refill GI/Abdominal exam: PRESENT: normal bowel sounds, soft. ABSENT: distended, guarding, mass, organolmegaly, rebound, tenderness Rectal exam: PRESENT: deferred Extremities exam: PRESENT: full ROM. ABSENT: calf tenderness, clubbing, pedal edema Neurological exam: PRESENT: alert, awake, oriented to person, oriented to place , oriented to time, oriented to situation, CN II-XII grossly intact. ABSENT: motor sensory deficit Psychiatric exam: PRESENT: appropriate affect, normal mood. ABSENT: homicidal ideation, suicidal ideation Skin exam: PRESENT: dry, intact, warm. ABSENT: cyanosis, rash Results Laboratory Results: 10/25/16 05:29 10/26/16 06:08 10/23/16 10/24/16 10/25/16 14:42 06:33 05:29 Creatine Kinase 2611 H 2608 H 1035 H 10/26/16 06:08 Creatine Kinase 411 H Impressions: Chest X-Ray 10/23/16 06:45 IMPRESSION: Low lung volumes. Otherwise, no acute radiographic finding in the chest. Assessment & Plan - Diagnosis (1) Alcohol withdrawal Qualifiers: Complication of substance-induced condition: with unspecified complication Qualified Code(s): F10.239 - Alcohol dependence with withdrawal, unspecified Is this a current diagnosis for this admission?: YesPlan: Ativan prn. Thiamine and folic acid. Discussed inpatient addiction rehab with patient and (2) Cocaine abuse Is this a current diagnosis for this admission?: Yes (3) Rhabdomyolysis Qualifiers: Rhabdomyolysis type: non-traumatic Qualified Code(s): M62.82 - Rhabdomyolysis Is this a current diagnosis for this admission?: Yes (4) Self-harming behavior Is this a current diagnosis for this admission?: Yes - Time Time Spent with patient: 25-34 minutes Critical Time spent with patient: 15-24 minutes Medications reviewed and adjusted accordingly: Yes Anticipated discharge: Home Within: within 24 hours
[2016-10-29] MEDS: AMITRIPTYLINE HCL 50 MG TABLET PO SCH (22:26)
[2016-10-29] MEDS: LORAZEPAM 1 MG TABLET PO PRN (22:26)
[2016-10-30] MEDS: LORAZEPAM 1 MG TABLET PO PRN ×5 (04:48→23:08)
[2016-10-30] MEDS: CYCLOBENZAPRINE HCL 10 MG TABLET PO PRN ×2 (04:48→21:24)
[2016-10-30] MEDS: LISINOPRIL 10 MG TABLET PO SCH ×2 (09:44→21:24)
[2016-10-30] MEDS: FAMOTIDINE 20 MG TABLET PO SCH ×2 (09:45→21:24)
[2016-10-30] MEDS: MELOXICAM 15 MG TABLET PO SCH (09:45)
[2016-10-30] MEDS: THIAMINE HCL 100 MG TABLET PO SCH (09:46)
[2016-10-30] MEDS: LIDOCAINE 5% (700 MG) TRANSDERMAL ADH..PATCH TP SCH (09:46)
[2016-10-30] MEDS: FOLIC ACID 1 MG TABLET PO SCH (09:46)
[2016-10-30] MEDS: AMLODIPINE BESYLATE 10 MG TABLET PO SCH (09:46)
[2016-10-30] MEDS: LORAZEPAM INJ 2 MG/1 ML VIAL IV PRN (11:49)
--- NOTE | 2016-10-30 13:31 | PDOC PROGRESS REPORT ---
Subjective Progress Note for:: 10/30/16 Subjective:: Patient is seen on morning rounds. He is improved from yesterday, but still tremulous. He has a bedside sitter. He has been taking less ativan than yesterday. He denies any other complaints other than the usual pain in his back. Physical Exam Vital Signs: Temp Pulse Resp BP Pulse Ox 98.4 F 85 20 132/83 H 97 10/30/16 12:00 10/30/16 12:00 10/30/16 12:00 10/30/16 12:00 10/30/16 12:00 Intake & Output 10/29/16 10/30/16 10/31/16 06:59 06:59 06:59 Intake Total 666 2350 Balance 666 2350 General appearance: PRESENT: no acute distress, morbidly obese, well-developed, well-nourished Head exam: PRESENT: atraumatic, normocephalic Eye exam: PRESENT: conjunctiva pink, EOMI, PERRLA. ABSENT: scleral icterus Ear exam: PRESENT: normal external ear exam Mouth exam: PRESENT: moist, tongue midline Neck exam: ABSENT: carotid bruit, JVD, lymphadenopathy, thyromegaly Respiratory exam: PRESENT: symmetrical, unlabored Cardiovascular exam: PRESENT: RRR. ABSENT: diastolic murmur, rubs, systolic murmur Pulses: PRESENT: normal dorsalis pedis pul Vascular exam: PRESENT: normal capillary refill GI/Abdominal exam: PRESENT: normal bowel sounds, soft. ABSENT: distended, guarding, mass, organolmegaly, rebound, tenderness Rectal exam: PRESENT: deferred Extremities exam: PRESENT: full ROM. ABSENT: calf tenderness, clubbing, pedal edema Neurological exam: PRESENT: alert, awake, oriented to person, oriented to place , oriented to time, oriented to situation, CN II-XII grossly intact. ABSENT: motor sensory deficit Psychiatric exam: PRESENT: agitated, anxious Skin exam: PRESENT: dry, intact, warm. ABSENT: cyanosis, rash Results Laboratory Results: 10/25/16 05:29 10/26/16 06:08 10/23/16 10/24/16 10/25/16 14:42 06:33 05:29 Creatine Kinase 2611 H 2608 H 1035 H 10/26/16 06:08 Creatine Kinase 411 H Impressions: Chest X-Ray 10/23/16 06:45 IMPRESSION: Low lung volumes. Otherwise, no acute radiographic finding in the chest. Assessment & Plan - Diagnosis (1) Alcohol withdrawal Qualifiers: Complication of substance-induced condition: with unspecified complication Qualified Code(s): F10.239 - Alcohol dependence with withdrawal, unspecified Is this a current diagnosis for this admission?: YesPlan: Ativan prn. Thiamine and folic acid. Discussed inpatient addiction rehab with patient and (2) Cocaine abuse Is this a current diagnosis for this admission?: YesPlan: Ativan for withdrawal. Counseled (3) Rhabdomyolysis Qualifiers: Rhabdomyolysis type: non-traumatic Qualified Code(s): M62.82 - Rhabdomyolysis Is this a current diagnosis for this admission?: Yes (4) Self-harming behavior Is this a current diagnosis for this admission?: Yes - Time Time Spent with patient: 25-34 minutes Critical Time spent with patient: 15-24 minutes Smoking Cessation Education: 3 to 10 minutes Medications reviewed and adjusted accordingly: Yes Anticipated discharge: Home with Homehealth - Inpatient Certification Based on my medical assessment, after consideration of the patient's comorbidities, presenting symptoms, or acuity I expect that the services needed warrant INPATIENT care.: Yes I certify that my determination is in accordance with my understanding of Medicare's requirements for reasonable and necessary INPATIENT services [42 CFR 412.3e].: Yes
[2016-10-30] MEDS: AMITRIPTYLINE HCL 50 MG TABLET PO SCH (21:24)
[2016-10-31] MEDS: LORAZEPAM INJ 2 MG/1 ML VIAL IV PRN (01:00)
[2016-10-31] MEDS ORDERED: HALOPERIDOL LACTATE INJ 5 MG/1 ML VIAL IV ONE ×2 (02:15→07:30)
[2016-10-31] MEDS ORDERED: LORAZEPAM INJ 2 MG/1 ML VIAL IV ONE (02:15)
[2016-10-31] MEDS: LORAZEPAM 1 MG TABLET PO PRN ×2 (06:06→18:40)
[2016-10-31] MEDS: LISINOPRIL 10 MG TABLET PO SCH ×2 (10:01→21:47)
[2016-10-31] MEDS: FOLIC ACID 1 MG TABLET PO SCH (10:02)
[2016-10-31] MEDS: AMLODIPINE BESYLATE 10 MG TABLET PO SCH (10:02)
[2016-10-31] MEDS: THIAMINE HCL 100 MG TABLET PO SCH (10:02)
[2016-10-31] MEDS: FAMOTIDINE 20 MG TABLET PO SCH ×2 (10:02→21:46)
[2016-10-31] MEDS: MELOXICAM 15 MG TABLET PO SCH (10:03)
[2016-10-31] MEDS: LIDOCAINE 5% (700 MG) TRANSDERMAL ADH..PATCH TP SCH (10:04)
--- NOTE | 2016-10-31 13:06 | PDOC PROGRESS REPORT ---
Subjective Progress Note for:: 10/31/16 Subjective:: Patient is seen on morning rounds. He apparently had a rough night with agitation and had to be restrained. He was sedated with IV haldol. He is more cooperative today . He states his back pain triggered his agitation. He has a bedside sitter. He has been taking less ativan than yesterday. He denies any other complaints other than the usual pain in his back. Physical Exam Vital Signs: Temp Pulse Resp BP Pulse Ox 97.5 F 94 17 111/76 98 10/31/16 11:39 10/31/16 11:39 10/31/16 11:39 10/31/16 11:39 10/31/16 11:39 Intake & Output 10/30/16 10/31/16 11/01/16 06:59 06:59 06:59 Intake Total 2350 2325 Balance 2350 2325 General appearance: PRESENT: no acute distress, morbidly obese, well-developed, well-nourished Head exam: PRESENT: atraumatic, normocephalic Eye exam: PRESENT: conjunctiva pink, EOMI, PERRLA. ABSENT: scleral icterus Ear exam: PRESENT: normal external ear exam Mouth exam: PRESENT: moist, tongue midline Neck exam: ABSENT: carotid bruit, JVD, lymphadenopathy, thyromegaly Respiratory exam: PRESENT: clear to auscultation katie. ABSENT: rales, rhonchi, wheezes Cardiovascular exam: PRESENT: RRR. ABSENT: diastolic murmur, rubs, systolic murmur Pulses: PRESENT: normal dorsalis pedis pul Vascular exam: PRESENT: normal capillary refill GI/Abdominal exam: PRESENT: normal bowel sounds, soft. ABSENT: distended, guarding, mass, organolmegaly, rebound, tenderness Rectal exam: PRESENT: deferred Extremities exam: PRESENT: full ROM. ABSENT: calf tenderness, clubbing, pedal edema Musculoskeletal exam: PRESENT: ambulatory, full ROM Neurological exam: PRESENT: alert, awake, oriented to person, oriented to place , oriented to time, oriented to situation, CN II-XII grossly intact. ABSENT: motor sensory deficit Psychiatric exam: PRESENT: anxious Skin exam: PRESENT: dry, intact, warm. ABSENT: cyanosis, rash Results Laboratory Results: 10/25/16 05:29 10/26/16 06:08 10/23/16 10/24/16 10/25/16 14:42 06:33 05:29 Creatine Kinase 2611 H 2608 H 1035 H 10/26/16 06:08 Creatine Kinase 411 H Impressions: Chest X-Ray 10/23/16 06:45 IMPRESSION: Low lung volumes. Otherwise, no acute radiographic finding in the chest. Assessment & Plan - Diagnosis (1) Alcohol withdrawal Qualifiers: Complication of substance-induced condition: with unspecified complication Qualified Code(s): F10.239 - Alcohol dependence with withdrawal, unspecified Is this a current diagnosis for this admission?: YesPlan: Ativan prn. Thiamine and folic acid. Discussed inpatient addiction rehab with patient and (2) Cocaine abuse Is this a current diagnosis for this admission?: YesPlan: Ativan for withdrawal. Counseled (3) Rhabdomyolysis Qualifiers: Rhabdomyolysis type: non-traumatic Qualified Code(s): M62.82 - Rhabdomyolysis Is this a current diagnosis for this admission?: YesPlan: Resolved with IV hydration (4) Self-harming behavior Is this a current diagnosis for this admission?: Yes - Time Time Spent with patient: 25-34 minutes Critical Time spent with patient: 15-24 minutes Medications reviewed and adjusted accordingly: Yes
[2016-10-31] MEDS: HALOPERIDOL LACTATE INJ 5 MG/1 ML VIAL IV SCH ×2 (13:50→21:46)
[2016-10-31] MEDS ORDERED: (PENDING PHARMACY ID) (Buprenorphine Hcl/Naloxone Hcl [Suboxone 8 Mg-2 Mg Sl Film] 1 FILM) SL SCH (14:00)
--- NOTE | 2016-10-31 16:03 | PSYCHOLOGICAL NOTE ---
Psych Note - Psych Note Psych Note: Patient coming in for evaluation of isopropyl alcohol ingestion. Patient has a history of chronic alcoholism. Patient does admit also using cocaine and heroin recently. According to the patient was found with empty bottles of isopropyl alcohol. Patient also admits to drinking regular alcohol. Patient initially denies an intent to harm himself however states that patient made a statement that he could not live without her states that she was planning on leaving her . Patient has been in the past for DTs and alcohol withdrawal for rhabdomyolysis. Patient disclosed that he was trying to have a good time. 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 He continues state that he knows he has an issue and needs to probably change all the places people and things that he normally does. He continued disclosed that he is probably going to lose his job. 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 He continues to disclose that he does have some concerns about his leaving him. Patient reiterated that he was not trying to kill himself however he is interested in receiving information to assist with sobriety. Patient is alert and orientated to person place time and circumstance. Mood is euthymic with congruent affect. Patient denies suicidal and homicidal ideation. . Patient denies auditory visual hallucinations; patient is not demonstrating any behavior congruent with responding to internal stimuli. No delusions are noted. Thought process is organized and linear. Conversational speech was within normal rate tone and prosody. Eye contact was well- maintained. Intellectual abilities appear to be average range. Attention and concentration are good. Insight, judgment, impulse control are poor. Polysubstance abuse Impression\plan: Patient is recommended for rescind of IVC and is considered psychiatrically clear for discharge. Patient no longer meets IVC criteria per [place] GS 120 2C. Patient denies suicidal and homicidal ideation stating he was just trying to have a good time. Patient has stated this on multiple occasions to multiple [facility] staff to include this clinician. Patient is also noted to have stated that he did not attempt suicide when first reaching [facility] in the emergency room. Patient states he is having some psychosocial issues surrounding his alcoholism. Patient is interested in receiving treatment information. Dr. Poe was consulted and the care management of this patient; attending physician is agreement with recommendations and disposition.
[2016-10-31] MEDS: AMITRIPTYLINE HCL 50 MG TABLET PO SCH (21:46)
[2016-11-01] MEDS: HALOPERIDOL LACTATE INJ 5 MG/1 ML VIAL IV SCH ×3 (05:23→21:30)
[2016-11-01] MEDS ORDERED: IPRATROPIUM/ALBUTEROL 0.5-2.5 MG/3 ML AMPUL NEB PRN (09:56)
[2016-11-01] MEDS ORDERED: IPRATROPIUM/ALBUTEROL 0.5-2.5 MG/3 ML AMPUL NEB ONE (10:30)
[2016-11-01] MEDS: FOLIC ACID 1 MG TABLET PO SCH (10:55)
[2016-11-01] MEDS: LISINOPRIL 10 MG TABLET PO SCH ×2 (10:55→21:30)
[2016-11-01] MEDS: MELOXICAM 15 MG TABLET PO SCH (10:56)
[2016-11-01] MEDS: THIAMINE HCL 100 MG TABLET PO SCH (10:56)
[2016-11-01] MEDS: FAMOTIDINE 20 MG TABLET PO SCH ×2 (10:56→21:30)
[2016-11-01] MEDS: AMLODIPINE BESYLATE 10 MG TABLET PO SCH (10:57)
[2016-11-01] MEDS: LIDOCAINE 5% (700 MG) TRANSDERMAL ADH..PATCH TP SCH (10:57)
--- NOTE | 2016-11-01 11:07 | PDOC PROGRESS REPORT ---
Subjective Progress Note for:: 11/01/16 Subjective:: Patient is seen on morning rounds. He had a much better night with no agitation or tremors. He actually slept last night. He states he has a nonproductive cough and is wheezing some this morning which is new. He denies any shortness of breath or dyspnea. He denies any other complaints other than the usual pain in his back. Physical Exam Vital Signs: Temp Pulse Resp BP Pulse Ox 97.7 F 81 20 111/75 98 11/01/16 07:49 11/01/16 07:49 11/01/16 07:49 11/01/16 07:49 11/01/16 07:49 Intake & Output 10/31/16 11/01/16 11/02/16 06:59 06:59 06:59 Intake Total 2325 1880 Balance 2325 1880 Weight 123.3 kg General appearance: PRESENT: no acute distress, morbidly obese, well-developed, well-nourished Head exam: PRESENT: atraumatic, normocephalic Eye exam: PRESENT: conjunctiva pink, EOMI, PERRLA. ABSENT: scleral icterus Ear exam: PRESENT: normal external ear exam Mouth exam: PRESENT: moist, tongue midline Neck exam: ABSENT: carotid bruit, JVD, lymphadenopathy, thyromegaly Respiratory exam: PRESENT: symmetrical, unlabored, wheezes - right base Cardiovascular exam: PRESENT: RRR. ABSENT: diastolic murmur, rubs, systolic murmur Pulses: PRESENT: normal dorsalis pedis pul Vascular exam: PRESENT: normal capillary refill GI/Abdominal exam: PRESENT: normal bowel sounds, soft. ABSENT: distended, guarding, mass, organolmegaly, rebound, tenderness Rectal exam: PRESENT: deferred Extremities exam: PRESENT: full ROM. ABSENT: calf tenderness, clubbing, pedal edema Neurological exam: PRESENT: alert, awake, oriented to person, oriented to place , oriented to time, oriented to situation, CN II-XII grossly intact. ABSENT: motor sensory deficit Psychiatric exam: PRESENT: appropriate affect, normal mood. ABSENT: homicidal ideation, suicidal ideation Skin exam: PRESENT: dry, intact, warm. ABSENT: cyanosis, rash Results Laboratory Results: 10/25/16 05:29 10/26/16 06:08 10/23/16 10/24/16 10/25/16 14:42 06:33 05:29 Creatine Kinase 2611 H 2608 H 1035 H 10/26/16 06:08 Creatine Kinase 411 H Impressions: Chest X-Ray 10/23/16 06:45 IMPRESSION: Low lung volumes. Otherwise, no acute radiographic finding in the chest. Assessment & Plan - Diagnosis (1) Alcohol withdrawal Qualifiers: Complication of substance-induced condition: with unspecified complication Qualified Code(s): F10.239 - Alcohol dependence with withdrawal, unspecified Is this a current diagnosis for this admission?: YesPlan: Ativan prn. Thiamine and folic acid. Discussed inpatient addiction rehab with patient and but they do not have insurance or assets to afford this. He is much improved today.Hopefully discharge home tomorrow (2) Wheezing on auscultation Is this a current diagnosis for this admission?: YesPlan: Most likely secondary to atelectasis, will order duoneb treatments and incentive spirometry. OOB to chair. (3) Cocaine abuse Is this a current diagnosis for this admission?: YesPlan: Ativan for withdrawal. Counseled (4) Rhabdomyolysis Qualifiers: Rhabdomyolysis type: non-traumatic Qualified Code(s): M62.82 - Rhabdomyolysis Is this a current diagnosis for this admission?: YesPlan: Resolved with IV hydration (5) Self-harming behavior Is this a current diagnosis for this admission?: YesPlan: Improved - Time Time Spent with patient: 25-34 minutes Critical Time spent with patient: 15-24 minutes Medications reviewed and adjusted accordingly: Yes Anticipated discharge: Home Within: within 24 hours
[2016-11-01] MEDS: AMITRIPTYLINE HCL 50 MG TABLET PO SCH (21:30)
[2016-11-02] MEDS: HALOPERIDOL LACTATE INJ 5 MG/1 ML VIAL IV SCH (05:04)
--- NOTE | 2016-11-02 10:16 | PDOC DISCHARGE SUMMARY ---
General - Admit/Disc Date/PCP Admission Date/Primary Care Provider: 10/23/16 07:53 Discharge Date: 11/02/16 - Discharge Diagnosis (1) Alcohol withdrawal Is this a current diagnosis for this admission?: YesSummary: Resolved. Discussed with patient need to attend AA meetings or outpatient counseling if he is to succeed. Physical withdrawal symptoms have resolved (2) Wheezing on auscultation Is this a current diagnosis for this admission?: YesSummary: Resolved (3) Cocaine abuse Is this a current diagnosis for this admission?: YesSummary: Counseled needs continued outpatient counseling (4) Rhabdomyolysis Is this a current diagnosis for this admission?: YesSummary: Resolved (5) Self-harming behavior Is this a current diagnosis for this admission?: YesSummary: Resolved - Additional Information Resuscitation Status: Full Code Discharge Diet: Regular Discharge Activity: Activity As Tolerated Home Medications: Buprenorphine HCl/Naloxone HCl [Suboxone 8 mg-2 mg Sl Film] 1 film SL TID Lisinopril [Prinivil] 20 mg PO DAILY 10/23/16 Folic Acid [Folvite 1 mg Tablet] 1 mg PO DAILY #30 tablet 11/02/16 Lorazepam [Ativan 1 mg Tablet] 2 mg PO Q4HP PRN #30 tablet 11/02/16 Meloxicam [Mobic 15 mg Tablet] 15 mg PO DAILY #30 tablet 11/02/16 Thiamine HCl [Thiamine 100 mg Tablet] 100 mg PO DAILY #30 tablet 11/02/16 Tramadol HCl [Ultram 50 mg Tablet] 50 mg PO Q4HP PRN #30 tablet 11/02/16 History of Present Illness Patient complains of: Acute isopryl alcohol ingestion History of Present Illness: CHRISTEL DEL TORO SR is a 51 year old male medical history of polysubstance abuse as well as hypertension. Patient presented to the emergency department due to isopropyl alcohol ingestion. Patient has a history of known chronic alcoholism as well as opiate dependency. According to the emergency room provider the patient's had found empty bottles of isopropyl alcohol. Patient also admitted to drinking regular alcohol. Patient was found to be alert but extremely tachycardic, diaphoretic complaints. Patient's heart rate climbed to 160. He was treated with IV hydration and IV Ativan. He is referred to the hospitalist service for admission. He was evaluated by psychiatry and thought to be harm to himself and was placed under involuntary commitment with a sitter. He was admitted to the intensive care unit. Hospital Course Hospital Course: Patient was started on IV Ativan [id number]. Monitoring in the ICU overnight. He was later transferred to the [facility] with a sitter. He was reevaluated by psychiatry after 72 hours. At that time psychiatry did not feel he would harm to himself and cleared his IVC. He continues to have physical withdrawal over the next 3 days. He was started on IV Haldol around the clock. He wanted to be off of opioid analgesics as well. He was discharged on tramadol for his chronic lower back pain. He does continue to have problems with anxiety requiring Ativan. We discussed inpatient treatment versus outpatient treatment with patient and his . At the present time his insurance did not cover inpatient treatment. Therefore will follow up with outpatient counseling and AA meetings. Physical Exam Vital Signs: Temp Pulse Resp BP Pulse Ox 97.7 F 80 18 132/72 H 98 11/02/16 08:02 11/02/16 08:02 11/02/16 08:02 11/02/16 08:02 11/02/16 08:02 Intake & Output 11/01/16 11/02/16 11/03/16 06:59 06:59 06:59 Intake Total 1880 1500 Balance 1880 1500 Weight 123.3 kg General appearance: PRESENT: no acute distress, morbidly obese, well-developed, well-nourished Head exam: PRESENT: atraumatic, normocephalic Eye exam: PRESENT: conjunctiva pink, EOMI, PERRLA. ABSENT: scleral icterus Ear exam: PRESENT: normal external ear exam Mouth exam: PRESENT: moist, tongue midline Neck exam: ABSENT: carotid bruit, JVD, lymphadenopathy, thyromegaly Respiratory exam: PRESENT: clear to auscultation katie. ABSENT: rales, rhonchi, wheezes Cardiovascular exam: PRESENT: RRR. ABSENT: diastolic murmur, rubs, systolic murmur Pulses: PRESENT: normal dorsalis pedis pul Vascular exam: PRESENT: normal capillary refill Rectal exam: PRESENT: deferred Extremities exam: PRESENT: full ROM. ABSENT: calf tenderness, clubbing, pedal edema Neurological exam: PRESENT: alert, awake, oriented to person, oriented to place , oriented to time, oriented to situation, CN II-XII grossly intact. ABSENT: motor sensory deficit Psychiatric exam: PRESENT: anxious Skin exam: PRESENT: dry, intact, warm. ABSENT: cyanosis, rash Results Laboratory Results: 10/25/16 05:29 10/26/16 06:08 10/23/16 10/24/16 10/25/16 14:42 06:33 05:29 Creatine Kinase 2611 H 2608 H 1035 H 10/26/16 06:08 Creatine Kinase 411 H Impressions: Chest X-Ray 10/23/16 06:45 IMPRESSION: Low lung volumes. Otherwise, no acute radiographic finding in the chest. Qualifiers PATEINT BEING DISCHARGED WITH ANY OF THE FOLLOWING DIAGNOSIS?: No Plan Discharge Plan: Home with and outpatient counseling Time Spent: Less than 30 Minutes
[2016-11-02] MEDS: FOLIC ACID 1 MG TABLET PO SCH (10:26)
[2016-11-02] MEDS: AMLODIPINE BESYLATE 10 MG TABLET PO SCH (10:26)
[2016-11-02] MEDS: FAMOTIDINE 20 MG TABLET PO SCH (10:26)
[2016-11-02] MEDS: MELOXICAM 15 MG TABLET PO SCH (10:27)
[2016-11-02] MEDS: LISINOPRIL 10 MG TABLET PO SCH (10:27)
[2016-11-02] MEDS: THIAMINE HCL 100 MG TABLET PO SCH (10:27)
[2016-11-02] MEDS: LIDOCAINE 5% (700 MG) TRANSDERMAL ADH..PATCH TP SCH (10:27)
[2016-11-02 13:09] VITALS: BP 130/66
--- NOTE | 2016-11-04 15:12 | PROGRESS NOTE E ---
Progress Note NAME: CHRISTEL TRUJILLO : 1965 AGE: 51Y DATE: 10/26/2016 ROOM: 535 SUBJECTIVE: Mr. Trujillo is lying in bed. He is more awake and alert than he has been. Says he is a little shaky though. Feels it is time for more medication. The patient denies any nausea, vomiting. No diarrhea, shortness of breath, dizziness, chest pain. No fevers, chills. The patient has been afebrile. His blood pressure has been in a good range. Did discuss the patient's current status. The patient, at this time, states that he has had a long history of substance use and does feel that he cannot live without his , but does not express a specific suicidal ideation. The patient does freely admit to drinking hand kindergarten teacher assistant, as well as rubbing alcohol and multiple other substances. The patient denies IV heroin use stating that he just snorts it. Also admits to concurrent cocaine use as well, as well as being enrolled in the [facility]. The patient is forthcoming with his substance abuse history and does not voice any other concerns at this time. REVIEW OF SYSTEMS: The rest of the review of systems in negative. MEDICATIONS: Medications have been reviewed. OBJECTIVE: GENERAL: Mr. Trujillo is a 51-year-old male who is awake, alert. He is oriented to person, place, time and situation. Just a little delayed. Has no memory of the past several days. Does not appear to be in any acute distress. VITAL SIGNS: As follows: Temperature is 98.5, pulse 97, respiratory rate is 16. Blood pressure 151/99. Oxygen saturation is 95% on room air. SKIN: Warm and dry, no rash. Not diaphoretic. HEENT: Pupils are equal, round, and reactive to light and accommodation. Conjunctivae is pink. No JVP. CVS: Heart is regular. There is no murmur. CHEST: Clear to auscultation, symmetrical and unlabored. ABDOMEN: Soft, nontender, nondistended. EXTREMITIES: No clubbing, cyanosis, edema. PSYCHIATRIC: Pleasant mood. Somewhat euphoric. DIAGNOSTICS: Lab values are as follows: Hematology done on 10/25/2016 WBCs are 5.4. Hemoglobin 30.3. Hematocrit 39.3. Platelet count is 133,000. Chemistry panel 10/26/2016: Sodium is 138, potassium 4.2, chloride is 102, carbon dioxide 30. BUN 28. Creatinine is Glucose 104. Calcium is 8.9. Magnesium is 2.0. CK is 411. Blood culture obtained on 10/23/2016 have revealed no growth. IMPRESSION AND PLAN: 1. ISOPROPYL ALCOHOL INGESTION. THE PATIENT WAS DRINKING RUBBING ALCOHOL, WELL HAND DISTRIBUTION LINEMAN. CASE WAS DISCUSSED WITH POISON CONTROL. THE PATIENT STATES THAT HE RAN OUT OF HIS REGULAR DRINKING ALCOHOL, WAS IMPROVISING. THE PATIENT'S CHEMISTRIES HAVE NORMALIZED. APPEARS MUCH IMPROVED. 2. ALCOHOL DEPENDENCY WITH ACUTE WITHDRAWAL. OVERALL IS IMPROVING. THE PATIENT IS STILL A LITTLE SHAKY BUT COGNITIVE FUNCTION HAS RETURNED. 3. COCAINE ABUSE. HAVE DEFERRED BETA BLOCKERS FOR NOW BUT HIS RATE IS MUCH BETTER CONTROLLED IN THE 90s. WILL FOLLOW. 4. HEROIN ABUSE. THE PATIENT DENIES IV INGESTION, STATING THAT HE USUALLY SNORTS IT CURRENTLY WITH COCAINE. REGARDLESS, ECHO DID NOT REVEAL ANY VEGETATION BY TRANSTHORACIC ECHOCARDIOGRAM. 5. OPIATE DEPENDENCY, CONTINUOUS. THE PATIENT IS ENROLLED IN [facility] CLINIC. WILL CONTINUE P.R.N. OPIATE COVERAGE TO LESSEN POTENTIAL WITHDRAWALS. 6. RHABDOMYOLYSIS SECONDARY TO THE ABOVE. CK IS NORMALIZED. WILL DISCONTINUE IV FLUIDS. 7. ABNORMAL LFTs, LIKELY DUE TO CHRONIC ALCOHOLISM. 8. HYPERTENSION. BLOOD PRESSURES ARE STILL SLIGHTLY ELEVATED, HAS RESPONDED NICELY TO AGENTS. WILL CONTINUE THIS FOR NOW IT MAY BE AN ELEVATION OF BLOOD PRESSURE DUE TO THE WITHDRAWAL. 9. INTENT TO SELF HARM. THE PATIENT IS CURRENTLY UNDER IVC COMMITMENT. WILL RECONSULT PSYCH FOR REEVALUATION NOW THAT THE PATIENT IS AWAKE AND ALERT. DISPOSITION: The patient is a FULL CODE. Given the patient's symptomatology, diagnostic findings, will reevaluate in the a.m. The patient is medically cleared for disposition as per psych recommendations. Time spent on this followup including assessment and plan, physical examination, the patient education is 25 minutes. DICTATING PHYSICIAN: EKATERINA COLEMAN NP [id number] PHY#: [id number] ID: [id number] JOB#: [id number] ACCT: [id number] cc: > [facility]
== END 2016-11-02 13:30 | disposition home or self-care (01) | DRG 918 ==
LOC: ER 23:23 → EH 10-23 07:53 → UNDOADMIN 10-23 07:54 → 3S 10-24 14:08 → 5 10-28 12:20
PROVIDERS: ADMIT Family Medicine; ATTEND Family Medicine
DX: T51.2X2A Toxic effect of 2-Propanol, intentional self-harm, initial encounter (principal); F10.239 Alcohol dependence with withdrawal, unspecified; M62.82 Rhabdomyolysis; F11.20 Opioid dependence, uncomplicated; Z68.41 Body mass index [BMI] 40.0-44.9, adult; T51.0X2A Toxic effect of ethanol, intentional self-harm, initial encounter; I10 Essential (primary) hypertension; F14.10 Cocaine abuse, uncomplicated; M54.9 Dorsalgia, unspecified; E66.01 Morbid (severe) obesity due to excess calories; R06.2 Wheezing; Z78.1 Physical restraint status; Z63.5 Disruption of family by separation and divorce; Z88.0 Allergy status to penicillin; Z82.49 Family history of ischemic heart disease and other diseases of the circulatory system; Z87.81 Personal history of (healed) traumatic fracture; Y92.009 Unspecified place in unspecified non-institutional (private) residence as the place of occurrence of the external cause
CPT/HCPCS: 36415; 71010; 80048; 80053; 80184; 80185; 80307; 82010; 82542; 82550; 82803; 83690; 83735; 83930; 84484; 84600; 85025; 85027; 87040; 93005; 93010; 93306; 96361; 96374; 96376; 99291; 99292; J0360; J1451; J1630; J2060; J3411; J3475; J3480; J3490; J7030; J7620